=== PATIENT | female | born 1975 | race African-American/Black ===

== ENCOUNTER 2019-10-08 15:27 | Emergency (ER) | payer MEDICAID, SELFPAY ==
[~2019-10-08] VITALS: Ht 170.2 cm; Wt 78.5 kg
--- NOTE | 2019-10-08 16:00 | NUR ---
WENT INTO ROOM TO INTRODUCE MYSELF TO PT BUT PT NOT IN ROOM.
--- NOTE | 2019-10-08 16:16 | NUR ---
PT BACK IN ROOM. PT STATES THAT SHE IS HERE FOR A "RASH" THAT DEVELOPED X3 DAYS AGO ON HER CHIN AND ALSO AN "INGROWN HAIR" ON HER FOREHEAD. PT RESTING COMFORTABLY. WILL CONTINUE TO MONITOR.
[2019-10-08] MEDS ORDERED: SULFAMETH./TRIMETHOPRIM DS 800MG/160MG TABLET ONE ×2 (17:21→17:22)
[2019-10-08 17:27] VITALS: BP 127/82
[2019-10-08] MEDS ORDERED: SULFAMETH./TRIMETHOPRIM DS 800MG/160MG TABLET PO ONE (18:00)
== END 2019-10-08 17:29 | disposition home or self-care (01) ==
LOC: ED 17:20
DX: L02.01 Cutaneous abscess of face (principal); E11.9 Type 2 diabetes mellitus without complications
CPT/HCPCS: 99284

== ENCOUNTER 2019-11-18 15:35 | Emergency (ER) | payer MEDICAID ==
[~2019-11-18] VITALS: Ht 170.2 cm; Wt 75.3 kg
[2019-11-18 15:36] VITALS: BP 123/87
--- NOTE | 2019-11-18 15:46 | NUR ---
Pt needs insulin refill as wont see [facility] for 1 month. Pt reports she ran out of insulin 3 days ago. Pt has no symptoms and reports she feels fine. Pts bg [id number]
--- NOTE | 2019-11-18 16:02 | NUR ---
Patient/Caregiver given discharge instructions and they have confirmed that they understand the instructions. Patient ambulatory with steady gait.
== END 2019-11-18 16:04 | disposition home or self-care (01) ==
LOC: ED 15:55
DX: E11.65 Type 2 diabetes mellitus with hyperglycemia (principal); Z76.0 Encounter for issue of repeat prescription
CPT/HCPCS: 82962; 99282